=== PATIENT | female | born 1985 | race Caucasian/White ===

== ENCOUNTER 2017-03-31 21:29 | Emergency (ER) | payer BC ==
[2017-03-31 21:34] VITALS: TEMP 98; O2SAT 98
[2017-03-31] MEDS: Lidocaine 150 MG in Sodium Chloride 0.9% 100 ML IV STA (22:25)
[2017-03-31 22:30] LABS: BASO # 0.1 K/uL (0.0-0.2); BASO % 0.7 % (0.0-2.0); EOS # 0.2 K/uL (0.0-0.7); EOS % 1.6 % (0.0-4.0); HEMATOCRIT 32.3 % (34.0-47.0); LYMPH # 1.9 K/uL (1.0-4.3); LYMPH % 15.1 % (20.0-40.0); MEAN CELL VOLUME 84.6 fl (81.0-99.0); MEAN CORPUSCULAR HEMOGLOBIN 28.1 pg (27.0-31.0); MEAN CORPUSCULAR HGB CONC 33.2 g/dL (33.0-37.0); MEAN PLATELET VOLUME 8.4 fl (7.2-11.7); MONO # 0.7 K/uL (0.0-0.8); MONO % 5.6 % (0.0-10.0); NEUT # 9.6 K/uL (1.8-7.0); RED CELL DISTRIBUTION WIDTH 14.2 % (11.5-14.5); WHITE BLOOD COUNT 12.5 K/uL (4.8-10.8)
[2017-03-31 22:34] LABS: RBC URINE 41 /hpf (0-3); URINE BACTERIA RARE (<OCC); URINE BILIRUBIN NEGATIVE (NEGATIVE); URINE BLOOD LARGE (NEGATIVE); URINE COLOR YELLOW (YELLOW); URINE GLUCOSE (UA) NEG (Normal); URINE KETONE NEGATIVE (NEGATIVE); URINE LEUKOCYTE ESTERASE MOD Leu/uL (Negative); URINE PROTEIN 30 mg/dL (NEGATIVE); URINE UROBILINOGEN 0.2-1.0 mg/dL (0.2-1.0); WBC URINE 17 /hpf (0-5)
[2017-03-31 22:45] LABS: BLOOD UREA NITROGEN 8 mg/dl (7-17); CALCIUM 9.3 mg/dL (8.4-10.2); CARBON DIOXIDE 20 mmol/L (22-30); CHLORIDE 106 mmol/L (98-107); GFR AFRICAN-AMERICAN > 60; GLUCOSE,RANDOM 140 mg/dL (65-105); SODIUM 138 mmol/l (132-148)
[2017-04-01] MEDS ORDERED: cefTRIAXone (Rocephin) 1 gm Inj ONE (00:07)
[2017-04-01] MEDS: Lidocaine 150 MG in Sodium Chloride 0.9% 100 ML IV STA (00:17)
[2017-04-01 03:06] VITALS: BP 117/58; PULSE 85; RESP 18
== END 2017-04-01 01:40 | disposition home or self-care (01) ==
LOC: H.ER 21:29
DX: O23.40 Unspecified infection of urinary tract in pregnancy, unspecified trimester (principal)
CPT/HCPCS: 76770; 76815; 80048; 81003; 81025; 85025; 87086; 96365; 99283; J0696; J2001

== ENCOUNTER 2017-06-24 23:04 | Emergency (ER) | payer BC ==
[2017-06-25 00:07] VITALS: BMI 34.0
[2017-06-25] MEDS: Lactated Ringer's 1,000 ML IV SCH ×2 (00:20→01:20)
[2017-06-25] MEDS ORDERED: Lactated Ringer's 1,000 ML IV SCH (00:45)
[2017-06-25 01:02] LABS: BASO % 0.1 % (0.0-2.0); EOS % 0.1 % (0.0-4.0); HEMOGLOBIN 10.9 g/dL (12.0-16.0); LYMPH # 0.7 K/uL (1.0-4.3); MEAN CORPUSCULAR HGB CONC 33.3 g/dL (33.0-37.0); MEAN PLATELET VOLUME 8.3 fl (7.2-11.7); MONO # 0.8 K/uL (0.0-0.8); MONO % 7.2 % (0.0-10.0); NEUT # 9.1 K/uL (1.8-7.0); NEUT % 85.6 % (50.0-75.0); NRBC % 0.1 % (0.0-0.0); PLATELET COUNT 254 K/uL (130-400); RBC 4.03 Mil/uL (3.80-5.20); RED CELL DISTRIBUTION WIDTH 14.6 % (11.5-14.5); WHITE BLOOD COUNT 10.6 K/uL (4.8-10.8)
[2017-06-25 01:11] LABS: ALBUMIN 3.4 g/dL (3.5-5.0); ALT/SGPT 29 U/L (9-52); AMYLASE 50 U/L (30-110); AST/SGOT 18 U/L (14-36); BLOOD UREA NITROGEN 9 mg/dl (7-17); CALCIUM 9.1 mg/dL (8.4-10.2); GFR AFRICAN-AMERICAN > 60; GFR NON-AFRICAN AMERICAN > 60; LIPASE 47 U/L (23-300)
[2017-06-25 01:54] LABS: BANDS 1 % (0-2); NEUTROPHIL 84 % (42-75); TOTAL CELLS COUNTED 100
[2017-06-25 01:55] LABS: LYMPHOCYTE 8 % (20-50); PLATELET ESTIMATE NORMAL (NORMAL)
[2017-06-25 01:56] LABS: EOSINOPHIL 1 % (0-7); MONOCYTE 6 % (0-10)
[2017-06-25 02:10] LABS: SQUAMOUS EPITHIAL 4 /hpf (0-5); URINE BACTERIA MANY (<OCC); URINE BILIRUBIN NEGATIVE (NEGATIVE); URINE BLOOD MODERATE (NEGATIVE); URINE CLARITY CLOUDY (Clear); URINE COLOR YELLOW (YELLOW); URINE GLUCOSE (UA) NEG (Normal); URINE LEUKOCYTE ESTERASE LARGE Leu/uL (Negative); URINE NITRATE NEGATIVE (NEGATIVE); URINE PROTEIN 100 mg/dL (NEGATIVE); URINE UROBILINOGEN 0.2-1.0 mg/dL (0.2-1.0)
[2017-06-25 11:32] VITALS: BP 117/53; PULSE 101; RESP 18; TEMP 98.7; O2SAT 100
== END 2017-06-25 07:15 | disposition home or self-care (01) ==
LOC: H.EROB2 23:04 → H.EROB 23:58 → H.EROB2 06-25 07:15
DX: O21.0 Mild hyperemesis gravidarum (principal); O26.93 Pregnancy related conditions, unspecified, third trimester; R19.7 Diarrhea, unspecified; Z3A.30 30 weeks gestation of pregnancy
CPT/HCPCS: 80053; 81003; 82150; 82948; 83690; 85025; 96361; 96374; 99283; J2405; J7120

== ENCOUNTER 2017-08-18 05:57 | Emergency (ER) | payer BC, OTHER ==
--- NOTE | 2017-08-18 07:58 | OBHP ---
Datetime: 08/18/2017 06:46 IP Adm Impression: Term, intrauterine IP Admit Plan: Admit to unit; Observation/Evaluation; Discharge home Admit Comment, IP Provider: 32 y/o female with IUP 37.6wks (ALECIA 09/02) presenting with worsenin g CTX overnight and reduced movement since 3am (pt later reports she feels fm in [place]). Pt karla es vb, lof, cp, sob, dysuria, headache. PNC: Horizon, GDM + Diet controlled- BS fasting <90's, Postprandial <120's. HSV-2 +, GBS+ OBHx: 1 prior 2011, full term, 8lb PMHx: Nephrolithiasis s/p stent placement in 02/2017 Med: Acyclovir, Macrobid, PNV Social: negative x 3habits VSS General: pt appears intermittently uncomfortable, NAd Cardio: RRR, normal S1, S2 Pulm: CTABL Abdomen: Gravid, NT, no cva tenderness Extremities: No LE edema FHR: 135, reactive Assessment: IUP at 37.6 weeks presenting with Ctx Plan: Observation. Continuous monitoring. Fanny PGY1 OB Hospitalist Addendum: Pt seen and examined by me. Agree w/ above. 32 yo at 37+6 wks w / worsening ctxns, no movement since 3 am, feels baby moving here in [place], denies LOF, VB. Ge n'l: pt appears comfortable lying in stretcher VE: cx is high/ thick Pt discharged home w/ labor precautions. Pt has an appoint in the clinic on Mon., 08/22/2017. (E S) Pelvic Type - PN: Adequate Extremities - PN: Normal Abdomen - PN: Normal Back - PN: Normal Breast - PN: Not Done Lungs - PN: Normal Heart - PN: Normal Thyroid - PN: Not Done Neurologic - PN: Normal HEENT - PN: Normal General - PN: Normal FHR - Baseline A Provider: 120's Membranes, Provider: Intact Contraction Comments Provider: irregular EGA AdmitDate IP: 37.6 Vital Signs Provider: Reviewed; Within Normal Limits IP Chief Complaint: Uterine contractions; Decreased movement NICHD Variability Prov Fetus A: Moderate 6-25bpm NICHD Accel Fetus A IP Provider: 15X15 FHR Category Provider Fetus A: Category I NICHD Decel Fetus A IP Provider: None Dilatation, Provider: 0 Effacement, Provider: 0 Station, Provider: -3 Genitourinary Exam: Not Done DTRs - PN: Not Done Datetime: 06/25/2017 00:17 Comments, ACOG Physical Exam: Gen: pt AAOx3, not in acute distress. HEENT: PERRL, EOMI, dry mucous membranes on posterior orpharynx. Neck: No lymphadenopathy, Abdomen: soft, hyperactive bowel sounds, distended, diffusely tender on deep palpation. No rebound or rigidity. IP Hx Assessment: The History has been Updated
[2017-08-18 16:04] VITALS: BP 126/72; PULSE 75; RESP 18; TEMP 97.7
== END 2017-08-18 08:20 | disposition home or self-care (01) ==
LOC: H.EROB2 05:57 → H.EROB 08:15 → H.EROB2 08:20
DX: O47.1 False labor at or after 37 completed weeks of gestation (principal); Z3A.37 37 weeks gestation of pregnancy; O26.93 Pregnancy related conditions, unspecified, third trimester; R10.2 Pelvic and perineal pain; O36.8130 Decreased fetal movements, third trimester, not applicable or unspecified

== ENCOUNTER 2017-08-29 14:27 | Inpatient (IN) | payer OTHER ==
[2017-08-29] MEDS ORDERED: Penicillin G Potassium 5 MU in Sodium Chloride 0.9% 50 ML IVPB ONE ×2 (15:07→15:45)
[2017-08-29 15:09] VITALS: BMI 34.8
[2017-08-29] MEDS ORDERED: Lactated Ringer's 1,000 ML IV SCH (15:15)
[2017-08-29] MEDS: Lactated Ringer's 1,000 ML IV SCH ×2 (15:20→16:50)
[2017-08-29] MEDS ORDERED: Penicillin G 5 Million Unit Vial IVPB ONE (15:25)
--- NOTE | 2017-08-29 15:43 | OBHP ---
Datetime: 08/29/2017 15:27 IP Adm Impression: Term, intrauterine Pelvic Type - PN: Adequate Extremities - PN: Normal Abdomen - PN: Normal Back - PN: Normal Lungs - PN: Normal Heart - PN: Normal Thyroid - PN: Normal Neurologic - PN: Normal HEENT - PN: Normal General - PN: Normal FHR - Baseline A Provider: 140 Amniotic Fluid Color, Provider: Clear Contraction Comments Provider: every 5 mins. Pool Provider: Positive IP Hx Assessment: The History has been Reviewed and is Current EGA AdmitDate IP: 39.3 Vital Signs Provider: Reviewed IP Chief Complaint: Suspected ruptured membranes NICHD Variability Prov Fetus A: Moderate 6-25bpm NICHD Accel Fetus A IP Provider: 15X15 FHR Category Provider Fetus A: Category III Dilatation, Provider: 3 Effacement, Provider: 80 Station, Provider: -3 Genitourinary Exam: Normal Datetime: 08/29/2017 14:57 IP Admit Plan: Admit to unit; Observation/Evaluation Admit Comment, IP Provider: 32 y/o F at 39+3 weeks GA with ALECIA 09/02/17 by LMP 11/26/16 and confirmed with 1st trimester US, presents to [place] due to supected ROM at 1:30pm today. Fluid was jessica r and in significant amount. Pt reports CTX every 5 mins that last <1min. Positive FM. Pt taking harris y Nitrofurantoin and Acyclovir. Pt denies vaginal bleeding. All systems reviewed and negative except as per HPI. NKDA Medications: Acyclovis 400mg BID, Nitrofurantoin daily and PNV. OBGYN: , 1x at full term on 2011. History on HSV infection. Pt has GDM-A1, diet contr olled. PMHx: Right kidney stent placed on 02/25/17 due to renal calculi. PSHx: denied FHx: NC SHx: denied alcohol, tobacco or rec drugs. A/P: 32 y/o F with IUP at 39+3 weeks GA with ROM, GBS positive and Hx of HSV infection. Will admit to L_D. --FHT monitoring. Case discussed with Dr London, OB regional clinical research associate. Comments, ACOG Physical Exam: Pelvic Exam: 3/80%/posterior, speculum: + pooling and + nitraine paper . Nitrazine Provider: Positive
--- NOTE | 2017-08-29 15:46 | OBADHP ---
Datetime: 08/29/2017 15:27 Admit Comment, IP Provider: 32 y/o F at 39+3 weeks GA with ALECIA 09/02/17 by LMP 11/26/16 and confirmed with 1st trimester US, presents to [place] due to supected ROM at 1:30pm today. Fluid was jessica r and in significant amount. Pt reports CTX every 5 mins that last <1min. Positive FM. Pt taking harris y Nitrofurantoin and Acyclovir. Pt denies vaginal bleeding. All systems reviewed and negative except as per HPI. NKDA Medications: Acyclovis 400mg BID, Nitrofurantoin daily and PNV. OBGYN: , 1x at full term on 2011. History on HSV infection. Pt has GDM-A1, diet contr olled. PMHx: Right kidney stent placed on 02/25/17 due to renal calculi. PSHx: denied FHx: NC SHx: denied alcohol, tobacco or rec drugs. A/P: 32 y/o F with IUP at 39+3 weeks GA with ROM, GBS positive and Hx of HSV infection. --Admit pt to L_D unit --Penicillin for GBS prophylaxis --Initiate Labor protocol. Case discussed with Dr London, OB retail asset protection specialist. Renita PGY-1 OB Hospitalist Addendun: Pt seen and examined by me. Agree w/ above. 32 yo at 39+2 wks w / GDM, diet-controlled, w/ SROM for clear fluid and c/o ctxns. NST reassuring. No herpetic lesions on external and speculum exam. GBS positive. Pt admitted to L_D. Will start Penicillin for GBS prop hylaxis. (ES) Pelvic Type - PN: Adequate Extremities - PN: Normal Abdomen - PN: Normal Back - PN: Normal Lungs - PN: Normal Heart - PN: Normal Thyroid - PN: Normal Neurologic - PN: Normal HEENT - PN: Normal General - PN: Normal FHR - Baseline A Provider: 140 Amniotic Fluid Color, Provider: Clear Contraction Comments Provider: every 5 mins. Pool Provider: Positive Nitrazine Provider: Positive IP Hx Assessment: The History has been Reviewed and is Current Vital Signs Provider: Reviewed IP Chief Complaint: Suspected ruptured membranes NICHD Variability Prov Fetus A: Moderate 6-25bpm NICHD Accel Fetus A IP Provider: 15X15 FHR Category Provider Fetus A: Category III Dilatation, Provider: 3 Effacement, Provider: 80 Station, Provider: -3 Genitourinary Exam: Normal EGA AdmitDate IP: 39.3 IP Adm Impression: Term, intrauterine Datetime: 08/29/2017 14:57 Comments, ACOG Physical Exam: Pelvic Exam: 3/80%/posterior, speculum: + pooling and + nitraine paper . IP Admit Plan: Admit to unit; Observation/Evaluation Datetime: 08/18/2017 06:46 Breast - PN: Not Done Membranes, Provider: Intact NICHD Decel Fetus A IP Provider: None DTRs - PN: Not Done
[2017-08-29 15:50] LABS: BASO % 0.4 % (0.0-2.0); EOS % 0.3 % (0.0-4.0); HEMOGLOBIN 11.7 g/dL (12.0-16.0); LYMPH # 1.5 K/uL (1.0-4.3); LYMPH % 20.4 % (20.0-40.0); MEAN CELL VOLUME 80.7 fl (81.0-99.0); MEAN CORPUSCULAR HEMOGLOBIN 27.1 pg (27.0-31.0); MEAN CORPUSCULAR HGB CONC 33.6 g/dL (33.0-37.0); MEAN PLATELET VOLUME 10.1 fl (7.2-11.7); MONO # 0.5 K/uL (0.0-0.8); MONO % 6.5 % (0.0-10.0); NEUT # 5.3 K/uL (1.8-7.0); NEUT % 72.4 % (50.0-75.0); NRBC % 0.2 % (0.0-0.0); RBC 4.32 Mil/uL (3.80-5.20); RED CELL DISTRIBUTION WIDTH 18.7 % (11.5-14.5); WHITE BLOOD COUNT 7.3 K/uL (4.8-10.8)
[2017-08-29] MEDS ORDERED: Oxytocin 30 units/LR 500ML 30 U/500 ML BAG IV ONE (15:53)
[2017-08-29] MEDS ORDERED: Lidocaine 1% Inj (20ml) ONE (15:57)
[2017-08-29] MEDS ORDERED: Oxytocin 30 UNITS in Sodium Chloride 0.9% 500 ML IV ONE (16:15)
[2017-08-29] MEDS ORDERED: Bupivacaine HCl 0.25% PF (10 ml) Inj ONE (16:24)
[2017-08-29] MEDS ORDERED: Fentanyl/Bupivacaine HCl 250 ML EPI ONE (16:24)
[2017-08-29] MEDS ORDERED: Benzocaine/Menthol SPRAY TOP PRN ×2 (20:26→22:47)
[2017-08-29] MEDS ORDERED: Oxycodone/Acetaminophen 5/325 mg Tab PO PRN ×4 (20:26→22:47)
--- NOTE | 2017-08-29 20:37 | OBDS ---
DELIVERY PERSONNEL Delivery Doctor: Dayton London MD Monitor And Storage Bin Tender: ECrTiffanie Resident: Dr. Craig, PGY1 MATERNAL INFORMATION Delivery Anesthesia: Epidural Medications in Delivery: Pitocin 30 uni Provider Comments: Pt progressed to complete and pushed to deliver a viable male infant through jessica r fluid. Apgars 9 and 9. Wt 9#13.7, 4470 gms. Infant placed on mother's abdomen. Cord doubly clam ped. FOB cut the cord. Cord blood collected. Placenta delivered spontaneously intact w/ a 3vc at 2 0:12. Second degree tear repaired w/ 2-0 rapide. Rectum intact. Pt and baby tolerated the procedur e well. EBL 300mL LABOR SUMMARY EDC: 09/02/2017 00:00 No. Babies in Womb: 1 LABOR INFORMATION Onset of Labor: 08/29/2017 12:00 Group B Beta Strep: Positive MEMBRANES Membranes Rupture Method: Spontaneous Rupture of Membranes: 08/29/2017 13:30 Length of Rupture (hrs): 6.53 Amniotic Fluid Color: Clear Amniotic Fluid Amount: Moderate Amniotic Fluid Odor: Normal STAGES OF LABOR Stage 3 hrs: 0 Stage 3 min: 10 Total Time in Labor hrs: 8 Total Time in Labor min: 12 VAGINAL DELIVERY Episiotomy: None Laceration Extension: Second Degree Laceration Type: Perineal Laceration Repair: Yes Initial Vag Sponge Count: 15 Final Vag Sponge Count: 15 Sponge Count Correct: Yes BABY A INFORMATION Infant Delivery Date/Time: 08/29/2017 20:02 Method of Delivery: Vaginal Born in Route : No : N/A Forceps: N/A Vacuum Extraction: N/A Shoulder Dystocia : No SHOULDER DYSTOCIA BABY A Delivery Date/Time: 08/29/2017 20:02 PRESENTATION/POSITION BABY A Presentation: Cephalic Cephalic Presentation: Vertex Breech Presentation: N/A PLACENTA INFORMATION BABY A Placenta Delivery Time : 08/29/2017 20:12 Placenta Method of Delivery: Spontaneous Placenta Status: Delivered SCORES BABY A Heart Rate 1 min: >100 bpm Resp Effort 1 min: Good Cry Reflex Irritability 1 min: Cough or Sneeze or Pulls Away Muscle Tone 1 min: Active Motion Color 1 min: Body [place], Extremities Blue Resuscitation Effort 1 min: N/A SCORE 1 MIN: 9 Heart Rate 5 min: >100 bpm Resp Effort 5 min: Good Cry Reflex Irritability 5 min: Cough or Sneeze or Pulls Away Muscle Tone 5 min: Active Motion Color 5 min: Body [place], Extremities Blue Resuscitation Effort 5 min: N/A SCORE 5 MIN: 9 INFANT INFORMATION BABY A Gestational Age at Delivery: 39.3 Gestational Status: Term Outcome : Liveborn Condition : Stable Infant Sex: Male IDENTIFICATION/MEDS BABY A ID Band Number: [id number] ID Band Location: Left Leg; Left Arm CORD INFORMATION BABY A No. Cord Vessels: 3 Nuchal Cord : N/A Nuchal Cord Other: N/A True Knot: N/A Infant Cord pH Baby Arterial: N/A Infant Cord pH Baby Venous: N/A Cord Blood Taken: Yes Banking/Donate Info: N/A Suction: Mouth; Nose ASSESSMENT BABY A Infant Complications: None Physical Findings at Delivery: Within Normal Limits Respirations: Appears Normal Math Professor/ALS Called : No Transferred To: Remains with Mother
[2017-08-30 05:46] LABS: HEMOGLOBIN 9.4 g/dL (12.0-16.0); MEAN CELL VOLUME 81.1 fl (81.0-99.0); MEAN CORPUSCULAR HEMOGLOBIN 26.6 pg (27.0-31.0); MEAN CORPUSCULAR HGB CONC 32.8 g/dL (33.0-37.0); RBC 3.53 Mil/uL (3.80-5.20); RED CELL DISTRIBUTION WIDTH 18.1 % (11.5-14.5)
--- NOTE | 2017-08-30 12:03 | OBPPN ---
Datetime: 08/30/2017 06:51 PP Pain Prov: Within normal limits PP Nausea Prov: Denies PP Flatus Prov: Yes PP BM Prov: No PP Heart Prov: Normal PP Lungs Prov: Normal PP Abdomen/Uterus Prov: Normal PP Lochia Prov: Normal PP CVA Tenderness Prov: Normal PP Extremities Prov: Normal PP Impression Prov: Normal progression PP Plan Prov: Continue present management PP Progress Note Prov: PPD 1 32 y/o female now on PPD 1 seen and examined at bedside this morning. No overnight events. Reports pain is controlled with pain medications. Pt reports passing gas per rectum but no BM yet. V oiding freely w/o blood noted. Ambulating well w/o dizziness. Lochia is similar to menses volume. Pt is the baby w/o difficulty. Denies nausea, vomiting, fever, chills, chest pain or calf pain. Mother does not desire circumcision for the baby. Physical Exam: General: A_O, resting comfortably in bed, NAD HEENT: oral mucosa moist. Lungs: CTA B/L, no wheezing, rhonchi or rales CVS: RRR, S1, S2 ABD: ND, +BS, firm fundus @ umbilical level. Soft, appropriate TTP. EXT: no edema, negative Franco's sign, Neuro/psych: AAOX3. Assessment: 32 y/o female now doing well on PPD 1 S/p right renal stent placement on 02/25/17 due to renal calculi. Plan: OOB w/ caution Regular diet Percocet and Ibuprofen for pain management Senokot for constipation Continue Macrobid 100 mg PO daily consults for Encourage and ambulation Anticipate discharge tomorrow Sultan Craig, PGY1 H/H 03/24 anemia -asymptomatic OB Hospitalist note. Pt seen on rounds this morning. Agree with PGY1 note MAHNDO Vital Signs Provider PP: Reviewed
--- NOTE | 2017-08-31 12:10 | OBPPN ---
Datetime: 08/31/2017 06:26 PP Pain Prov: Within normal limits PP Nausea Prov: Denies PP Flatus Prov: Yes PP BM Prov: Yes PP Heart Prov: Normal PP Lungs Prov: Normal PP Abdomen/Uterus Prov: Normal PP Lochia Prov: Normal PP Extremities Prov: Normal PP Impression Prov: Normal progression PP Plan Prov: Discharge PP Progress Note Prov: 32 y/o female now on PPD 2 seen and examined at bedside this morning. No overnight events. Reports pain is controlled with pain medications. Pt had twp BM last night. Vo iding freely w/o blood noted. Ambulating well w/o dizziness. Lochia is similar to menses volume. Pt i s the baby w/o difficulty. Denies nausea, vomiting, fever, chills, chest pain or calf p ain. Denies dizziness, palpitation or weakness. Physical Exam: General: A_O, resting comfortably in bed, NAD HEENT: oral mucosa moist. Lungs: CTA B/L, no wheezing, rhonchi or rales CVS: RRR, S1, S2 ABD: ND, +BS, firm fundus @ umbilical level. Soft, appropriate TTP. EXT: no edema, negative Franco's sign, Neuro/psych: AAOX3. Assessment: 32 y/o female now doing well on PPD 2 Asymptomatic anemia Plan: Discharge to home today PNV 1 PO qdaily OTC Ferrous sulfate once daily Ibuprofen 600 mg 1 tab po prn q6 if moderate/severe pain Encourage . Ambulation with caution,nothing per vaginal, no heavy lifting, if excessive bleeding or fever w/o relief from pain medication go to ED. Follow up at your clinic in 4 to 6 weeks for visit. Sultan Craig, PGY1 Case d/w on-call OB hospitalist Patient was seen with the resident I agree with the patient cleared for discharge Vital Signs Provider PP: Reviewed
[2017-08-31 18:22] VITALS: BP 131/82; PULSE 82; RESP 18; TEMP 98.3; O2SAT 100
== END 2017-08-31 12:46 | disposition home or self-care (01) | DRG 775 ==
LOC: H.EROB2 14:27 → H.L&D 15:02 → H.OB/GYN 21:53
PROVIDERS: ADMIT Obstetrics & Gynecology; ATTEND Obstetrics & Gynecology
PROC: 10E0XZZ Delivery of Products of Conception, External Approach (ICD-10-PCS; principal; 2017-08-29)
PROC: 0KQM0ZZ Repair Perineum Muscle, Open Approach (ICD-10-PCS; 2017-08-29)
PROC: 4A1HXCZ Monitoring of Products of Conception, Cardiac Rate, External Approach (ICD-10-PCS; 2017-08-29)
DX: O24.420 Gestational diabetes mellitus in childbirth, diet controlled (principal); O70.1 Second degree perineal laceration during delivery; O99.824 Streptococcus B carrier state complicating childbirth; Z37.0 Single live birth; Z3A.39 39 weeks gestation of pregnancy; Z86.19 Personal history of other infectious and parasitic diseases; Z87.442 Personal history of urinary calculi

== ENCOUNTER 2018-05-08 22:50 | Emergency (ER) | payer OTHER ==
[2018-05-08 22:51] VITALS: BMI 34.8
[2018-05-08] MEDS ORDERED: Sodium Chloride 0.9% 1,000 ML IV STA (23:57)
[2018-05-09 00:45] LABS: BASO % 0.3 % (0.0-2.0); EOS # 0.4 K/uL (0.0-0.7); EOS % 2.9 % (0.0-4.0); HEMOGLOBIN 14.3 g/dL (12.0-16.0); LYMPH # 1.5 K/uL (1.0-4.3); LYMPH % 12.2 % (20.0-40.0); MEAN CELL VOLUME 82.5 fl (81.0-99.0); MEAN CORPUSCULAR HGB CONC 32.8 g/dL (33.0-37.0); MEAN PLATELET VOLUME 9.1 fl (7.2-11.7); MONO # 0.7 K/uL (0.0-0.8); MONO % 5.4 % (0.0-10.0); NEUT % 79.2 % (50.0-75.0); NRBC % 0.2 % (0.0-0.0); RBC 5.29 Mil/uL (3.80-5.20); RED CELL DISTRIBUTION WIDTH 13.7 % (11.5-14.5); WHITE BLOOD COUNT 12.7 K/uL (4.8-10.8)
[2018-05-09 00:46] LABS: ALB/GLOB RATIO 1.2 (1.0-2.1); ALBUMIN 4.7 g/dL (3.5-5.0); BLOOD UREA NITROGEN 11 mg/dl (7-17); CALCIUM 9.4 mg/dL (8.4-10.2); GFR NON-AFRICAN AMERICAN > 60
[2018-05-09 00:47] LABS: ALT/SGPT 23 U/L (9-52); AST/SGOT 29 U/L (14-36)
--- NOTE | 2018-05-09 01:10 | ED PDOC ---
HPI: Abdomen Time Seen by Provider: 05/08/18 23:30 Chief Complaint (Nursing): GI Problem Chief Complaint (Provider): GI Problem History Per: Patient History/Exam Limitations: no limitations Onset/Duration Of Symptoms: Days (x 1) Outside of [place] travel?: No Quality Of Discomfort: "Pain" Associated Symptoms: Vomiting, Diarrhea Additional Complaint(s): 32 year old female presents to the ED with 4 episodes of nbnb vomiting and 2 episodes of watery diarrhea beginning 1 day ago. She reports abdominal pain and cramping as well. Her daughter is in the ED with her and is showing similar symptoms. Otherwise, denies medical complaints. PMD: [facility] Past Medical History Reviewed: Historical Data, Nursing Documentation, Vital Signs Vital Signs: Last Vital Signs Temp 98.8 F 05/08/18 23:18 Pulse 109 H 05/08/18 23:18 Resp 20 05/08/18 23:18 BP 122/80 05/08/18 23:18 Pulse Ox 98 05/08/18 23:18 - Medical History PMH: Kidney Stones - Family History Family History: States: Unknown Family Hx - Home Medications Home Medications: Ambulatory Orders Medication Instructions Recorded Nitrofurantoin Macrocrystals 1 tab PO DAILY 06/25/17 [Macrobid] Vit Calc,Iron,Folic 1 tab PO DAILY 06/25/17 [ Vitamins] Ibuprofen [Motrin Tab] 600 mg PO Q6 PRN #30 tab 08/31/17 Dicyclomine [Bentyl] 20 mg PO Q12 PRN #20 tab 05/09/18 Ondansetron ODT [Zofran ODT] 4 mg PO Q6 PRN #8 odt 05/09/18 - Allergies Allergies/Adverse Reactions: Allergies Allergy/AdvReac Type Severity Reaction Status Date / Time No Known Allergies Allergy Verified 05/08/18 23:18 Review of Systems ROS Statement: Except As Marked, All Systems Reviewed And Found Negative Gastrointestinal: Positive for: Vomiting, Abdominal Pain, Diarrhea Physical Exam - Reviewed Nursing Documentation Reviewed: Yes Vital Signs Reviewed: Yes - Physical Exam Appears: Positive for: Non-toxic, No Acute Distress Head Exam: Positive for: ATRAUMATIC, NORMAL INSPECTION, NORMOCEPHALIC Skin: Positive for: Normal Color, Warm, DRY Eye Exam: Positive for: EOMI, Normal appearance, PERRL ENT: Positive for: Other (dry mucous membranes) Neck: Positive for: Normal, Painless ROM, Supple Cardiovascular/Chest: Positive for: Regular Rate, Rhythm. Negative for: Murmur Respiratory: Positive for: Normal Breath Sounds. Negative for: Respiratory Distress Gastrointestinal/Abdominal: Positive for: Normal Exam, Soft. Negative for: Tenderness Extremity: Positive for: Normal ROM. Negative for: Deformity Neurologic/Psych: Positive for: Alert, Oriented. Negative for: Motor/Sensory Deficits - Laboratory Results Result Diagrams: 05/09/18 00:15 05/09/18 00:15 - ECG O2 Sat by Pulse Oximetry: 98 (RA) Pulse Ox Interpretation: Normal Medical Decision Making Medical Decision Makin:56 Impression: acute gastroenteritis Initial Plan: --CMP --Urine preg --urine dip --CBC --Bentyl 20 mg PO --NS IV --Zofran Inj 4 mg IV --UA 02:07 --Labs reviewed and are not clinically significant for findings. Patient reports improvement of symptoms. Diagnosis is acute gastroenteritis. ----- Scribe Attestation: Documented by Yris Guzman, acting as a scribe for Clive Ocampo MD Provider Scribe Attestation: All medical record entries made by the Scribe were at my direction and personally dictated by me. I have reviewed the chart and agree that the record accurately reflects my personal performance of the history, physical exam, medical decision making, and the department course for this patient. I have also personally directed, reviewed, and agree with the discharge instructions and di sposition. Disposition - Clinical Impression Clinical Impression: Gastroenteritis - Patient ED Disposition Is Patient to be Admitted: No - Disposition Disposition: Routine/Home Disposition Time: 02:07 Condition: CRITICAL Prescriptions: Dicyclomine [Bentyl] 20 mg PO Q12 PRN #20 tab PRN Reason: abdominal pain/diarrhea Ondansetron ODT [Zofran ODT] 4 mg PO Q6 PRN #8 odt PRN Reason: Nausea/Vomiting Instructions: Diarrhea in Adolescents and Adults Forms: [facility] (Haitian)
[2018-05-09 02:21] VITALS: BP 109/62; PULSE 79; RESP 18; TEMP 98.4; O2SAT 99
== END 2018-05-09 02:33 | disposition home or self-care (01) ==
LOC: H.ER 22:50
DX: K52.9 Noninfective gastroenteritis and colitis, unspecified (principal)
CPT/HCPCS: 80053; 85025; 96360; 99283; J2405; J7030

== ENCOUNTER 2018-09-27 11:53 | Emergency (ER) | payer OTHER ==
[2018-09-27 11:53] VITALS: BMI 34.8
--- NOTE | 2018-09-27 14:49 | ED PDOC ---
HPI: Abdomen Time Seen by Provider: 09/27/18 12:37 Chief Complaint (Nursing): Abdominal Pain Chief Complaint (Provider): Flank Pain History Per: Patient History/Exam Limitations: no limitations Onset/Duration Of Symptoms: Days (x1) Current Symptoms Are (Timing): Still Present Additional Complaint(s): 33 year old female with pmhx of kidney stones during presents to the ED for evaluation of abdominal pain. Patient states that two days ago she had vomiting and diarrhea, which has since resolved, but today developed bilateral flank pain which radiates into her suprapubic area, right greater than left. Otherwise, denies dysuria, hematuria, incontinence, frequency, fever, chills, and current vomiting or diarrhea. PMD: none provided Past Medical History Reviewed: Historical Data, Nursing Documentation, Vital Signs Vital Signs: Last Vital Signs Temp 98.7 F 09/27/18 11:57 Pulse 76 09/27/18 11:57 Resp 16 09/27/18 11:57 BP 115/79 09/27/18 11:57 Pulse Ox 98 09/27/18 11:57 - Medical History PMH: Diabetes, Kidney Stones, Chronic Kidney Disease Denies: Depression, HTN - Surgical History Other surgeries: ureteral stent - Family History Family History: States: Unknown Family Hx - Social History Current smoker - smoking cessation education provided: No Alcohol: None Drugs: Denies - Home Medications Home Medications: Ambulatory Orders Medication Instructions Recorded Nitrofurantoin Macrocrystals 1 tab PO DAILY 06/25/17 [Macrobid] Vit Calc,Iron,Folic 1 tab PO DAILY 06/25/17 [ Vitamins] Ibuprofen [Motrin Tab] 600 mg PO Q6 PRN #30 tab 08/31/17 Dicyclomine [Bentyl] 20 mg PO Q12 PRN #20 tab 05/09/18 Ondansetron ODT [Zofran ODT] 4 mg PO Q6 PRN #8 odt 05/09/18 - Allergies Allergies/Adverse Reactions: Allergies Allergy/AdvReac Type Severity Reaction Status Date / Time No Known Allergies Allergy Verified 05/08/18 23:18 Review of Systems ROS Statement: Except As Marked, All Systems Reviewed And Found Negative Constitutional: Negative for: Fever, Chills Gastrointestinal: Positive for: Abdominal Pain (suprapubic right greater than left; bilateral flank pain). Negative for: Vomiting (resolved), Diarrhea (resolved) Genitourinary Female: Negative for: Dysuria, Frequency, Incontinence, Hematuria Physical Exam - Reviewed Nursing Documentation Reviewed: Yes Vital Signs Reviewed: Yes - Physical Exam Appears: Positive for: No Acute Distress (resting comfortably) Head Exam: Positive for: ATRAUMATIC, NORMAL INSPECTION, NORMOCEPHALIC Skin: Positive for: Normal Color, Warm, DRY Eye Exam: Positive for: EOMI, Normal appearance, PERRL Neck: Positive for: Normal, Painless ROM, Supple Cardiovascular/Chest: Positive for: Regular Rate, Rhythm Respiratory: Positive for: Normal Breath Sounds. Negative for: Respiratory Distress Gastrointestinal/Abdominal: Positive for: Soft, Tenderness (mild right sided suprapubic tenderness and bilateral flank tenderness). Negative for: Mass, Guarding, Rebound Back: Positive for: Normal Inspection Extremity: Positive for: Normal ROM (all extremities) Neurological/Psych: Positive for: Awake, Alert, Oriented (x3x). Negative for: Motor/Sensory Deficits - ECG O2 Sat by Pulse Oximetry: 98 (RA) Pulse Ox Interpretation: Normal Medical Decision Making Medical Decision Making: Time: 1425 Initial Impression: r/o UTI, r/o kidney stones Initial Plan: --CT abd/pelvis w/o contrast --CMP --CBC with differential --TOradol 15mg IVP --Urine culture --Urinalysis --Reevaluation 1500 Patient care endorsed to Dr. Bran pending workup and reevaluation. ---- Scribe Attestation: Documented by Azalia Salamanca, acting as a scribe for Brianne Johns MD. Provider Scribe Attestation: All medical record entries made by the Scribe were at my direction and personally dictated by me. I have reviewed the chart and agree that the record accurately reflects my personal performance of the history, physical exam, medical decision making, and the department course for this patient. I have also personally directed, reviewed, and agree with the discharge instructions and disposition. Disposition - Disposition Condition: STABLE Forms: [employer] (Khmer)
[2018-09-27 15:19] LABS: SQUAMOUS EPITHIAL 2 /hpf (0-5); URINE BACTERIA OCC (<OCC); URINE BILIRUBIN NEGATIVE (NEGATIVE); URINE BLOOD NEGATIVE (NEGATIVE); URINE CLARITY SLIGHTY-CLOUDY (Clear); URINE COLOR YELLOW (YELLOW); URINE GLUCOSE (UA) NEG (NEGATIVE); URINE LEUKOCYTE ESTERASE SMALL Leu/uL (Negative); URINE PROTEIN NEGATIVE (NEGATIVE); URINE UROBILINOGEN 0.2-1.0 mg/dL (0.2-1.0)
[2018-09-27 16:07] LABS: BASO % 0.2 % (0.0-2.0); EOS # 0.1 K/uL (0.0-0.7); HEMOGLOBIN 12.6 g/dL (12.0-16.0); LYMPH # 1.5 K/uL (1.0-4.3); LYMPH % 24.2 % (20.0-40.0); MEAN CELL VOLUME 80.6 fl (81.0-99.0); MEAN CORPUSCULAR HEMOGLOBIN 27.7 pg (27.0-31.0); MEAN CORPUSCULAR HGB CONC 34.3 g/dL (33.0-37.0); MEAN PLATELET VOLUME 8.8 fl (7.2-11.7); MONO # 0.7 K/uL (0.0-0.8); MONO % 10.6 % (0.0-10.0); NEUT # 4.1 K/uL (1.8-7.0); NRBC % 0.3 % (0.0-0.0); RBC 4.54 Mil/uL (3.80-5.20); RED CELL DISTRIBUTION WIDTH 13.9 % (11.5-14.5); WHITE BLOOD COUNT 6.4 K/uL (4.8-10.8)
[2018-09-27 16:13] LABS: ALB/GLOB RATIO 1.2 (1.0-2.1); ALBUMIN 3.9 g/dL (3.5-5.0); ALT/SGPT 23 U/L (9-52); AST/SGOT 20 U/L (14-36); BLOOD UREA NITROGEN 9 mg/dl (7-17); CALCIUM 9.1 mg/dL (8.4-10.2); GFR NON-AFRICAN AMERICAN > 60
--- NOTE | 2018-09-27 17:09 | CT ---
Date of service: 09/27/2018 PROCEDURE: CT Abdomen and Pelvis without intravenous contrast HISTORY: Abdominal, flank and lower back pain. COMPARISON: None. TECHNIQUE: Unenhanced. Neither IV nor oral contrast administered Radiation dose: Total exam DLP = 730.93 mGy-cm. This CT exam was performed using one or more of the following dose reduction techniques: Automated exposure control, adjustment of the mA and/or kV according to patient size, and/or use of iterative reconstruction technique. FINDINGS: LOWER THORAX: Unremarkable. LIVER: Unremarkable. No gross lesion or ductal dilatation. GALLBLADDER AND BILE DUCTS: Unremarkable. PANCREAS: Unremarkable. No gross lesion or ductal dilatation. SPLEEN: Unremarkable. ADRENALS: Unremarkable. No mass. KIDNEYS AND URETERS: Unremarkable. No hydronephrosis. No solid mass. VASCULATURE: Unremarkable. No aortic aneurysm. No atherosclerotic calcification or mural plaque present. BOWEL: Diverticulosis without an acute inflammatory component or other associated pathologic process. APPENDIX: A normal appendix is visualized in it's entirety. PERITONEUM: Unremarkable. No free fluid. No free air. LYMPH NODES: Unremarkable. No enlarged lymph nodes. BLADDER: Unremarkable. REPRODUCTIVE: Unremarkable. BONES: No acute fracture. Grade 1 anterolisthesis L5-S1. Associated spondylolysis. Disc degenerative changes, disc space narrowing. OTHER FINDINGS: Breast tissue asymmetry more prominent right breast compared to left. This may be technical/artifact. Correlation with physical examination recommended. Ultrasound electively may also be useful. IMPRESSION: No significant or acute findings to account for/ related to the clinical presentation. Additional benign and/or incidental findings described above.
--- NOTE | 2018-09-27 17:17 | ED PDOC ---
- Laboratory Results Result Diagrams: 09/27/18 15:27 09/27/18 15:27 Lab Results: Total Bilirubin 0.4 mg/dl (0.2-1.3) 09/27/18 15:27 AST 20 U/L (14-36) 09/27/18 15:27 ALT 23 U/L (9-52) 09/27/18 15:27 Alkaline Phosphatase 81 U/L (38-126) 09/27/18 15:27 Total Protein 7.0 G/DL (6.3-8.2) 09/27/18 15:27 Albumin 3.9 g/dL (3.5-5.0) 09/27/18 15:27 Globulin 3.2 gm/dL (2.2-3.9) 09/27/18 15: Albumin/Globulin Ratio 1.2 (1.0-2.1) 09/27/18 15:27 Urine Color Yellow (YELLOW) 09/27/18 14:37 Urine Clarity Slighty-cloudy (Clear) 09/27/18 14:37 Urine pH 6.0 (5.0-8.0) 09/27/18 14:37 Ur Specific [place] 1.017 (1.003-1.030) 09/27/18 14:37 Urine Protein Negative mg/dL (NEGATIVE) 09/27/18 14:37 Urine Glucose (UA) Neg mg/dL (NEGATIVE) 09/27/18 14:37 Urine Ketones Negative mg/dL (NEGATIVE) 09/27/18 14:37 Urine Blood Negative (NEGATIVE) 09/27/18 14:37 Urine Nitrate Negative (NEGATIVE) 09/27/18 14:37 Urine Bilirubin Negative (NEGATIVE) 09/27/18 14:37 Urine Urobilinogen 0.2-1.0 mg/dL (0.2-1.0) 09/27/18 14:37 Ur Leukocyte Esterase Small [place]/uL (Negative) 09/27/18 14:37 Urine RBC (Auto) 1 /hpf (0-3) 09/27/18 14:37 Urine Microscopic WBC 16 /hpf (0-5) H 09/27/18 14:37 Ur Squamous Epith Cells 2 /hpf (0-5) 09/27/18 14:37 Urine Bacteria Occ (<OCC) H 09/27/18 14:37 - ECG O2 Sat by Pulse Oximetry: 98 (RA) Disposition - Clinical Impression Clinical Impression: UTI (urinary tract infection) - POA Present On Arrival: None - Disposition Referrals: [facility] [Outside] Disposition: Routine/Home Disposition Time: 17:17 Condition: FAIR Prescriptions: Sulfamethoxazole/Trimethoprim [Bactrim DS 800 mg-160 mg] 1 tab PO BID #20 tab Instructions: Urinary Tract Infections in Adults Forms: [facility] (Indonesian)
[2018-09-27 17:34] VITALS: BP 118/65; PULSE 68; RESP 18; TEMP 98.5; O2SAT 99
== END 2018-09-27 17:31 | disposition home or self-care (01) ==
LOC: H.ER 11:53
DX: Z87.442 Personal history of urinary calculi (principal)
CPT/HCPCS: 74176; 80053; 81003; 81025; 85025; 87086; 87181; 96374; 99285; J1885